=== PATIENT | male | born 1970 | race Caucasian/White ===

== ENCOUNTER 2022-06-18 11:15 | Emergency (ER) | payer OTHER ==
[~2022-06-18] VITALS: Ht 182.8 cm; Wt 97.5 kg
[2022-06-18 11:37] LABS: BASOPHILS % (AUTO) 1 % (0-10); EOSINOPHILS % (AUTO) 1 % (0-10); HEMATOCRIT 44 % (40-54); HEMOGLOBIN 15.3 g/dL (13.3-17.7); LYMPHOCYTES # (AUTO) 0.9 10^3/uL (1.0-4.0); LYMPHOCYTES % (AUTO) 14 % (12-44); MEAN CORPUSCULAR HEMOGLOBIN 29 pg (25-34); MEAN CORPUSCULAR HGB CONC 35 g/dL (32-36); MEAN CORPUSCULAR VOLUME 85 fL (80-99); MEAN PLATELET VOLUME 9.7 fL (9.0-12.2); MONOCYTES # (AUTO) 0.3 10^3/uL (0.0-1.0); MONOCYTES % (AUTO) 5 % (0-12); NEUTROPHILS # (AUTO) 5.3 10^3/uL (1.8-7.8); NEUTROPHILS % (AUTO) 80 % (42-75); PLATELET COUNT 281 10^3/uL (130-400); WHITE BLOOD COUNT 6.7 10^3/uL (4.3-11.0)
[2022-06-18] MEDS ORDERED: LORazepam INJ 2 MG/ML (ATIVAN) VIAL IVP ONE (11:45)
[2022-06-18] MEDS ORDERED: ONDANSETRON 4 MG/2 ML (SDV) Z0FRAN IVP ONE (11:45)
[2022-06-18] MEDS ORDERED: cloNIDine 0.2 MG (CATAPRES) TAB PO ONE (11:45)
[2022-06-18 11:58] LABS: ALKALINE PHOSPHATASE 97 U/L (40-136); BILIRUBIN,TOTAL 0.4 MG/DL (0.1-1.0); BUN/CREATININE RATIO 12; CALCIUM 9.2 MG/DL (8.5-10.1); CARBON DIOXIDE 24 MMOL/L (21-32); CHLORIDE 101 MMOL/L (98-107); CREATININE SERUM 0.89 MG/DL (0.60-1.30); GFR ESTIMATED 102; GLUCOSE 126 MG/DL (70-105); POTASSIUM 4.6 MMOL/L (3.6-5.0); SODIUM 136 MMOL/L (135-145)
[2022-06-18 11:59] LABS: ALANINE AMINOTRANSFERASE 14 U/L (0-55); ALBUMIN 4.7 GM/DL (3.2-4.5); TOTAL PROTEIN 7.4 GM/DL (6.4-8.2)
[2022-06-18] MEDS ORDERED: NS 100 ML (IVPB) BAG IV ONE (12:00)
[2022-06-18] MEDS ORDERED: IOHEXOL 350 MG/ML 100 ML (OMNIPAQUE 350) VIAL IV ONE (12:00)
[2022-06-18] MEDS ORDERED: HOLD METFORMIN - RECEIVED CONTRAST 20 ML VIAL IV SCH (12:00)
[2022-06-18] MEDS ORDERED: CATHETER FLUSH 10 ML SYR IV PRN (12:00)
--- NOTE | 2022-06-18 12:53 | Diagnostic Imaging Report ---
PROCEDURE: CT angiography of the head and CT angiography of the neck with and without contrast. TECHNIQUE: Contiguous noncontrast images were obtained from the skull base through the vertex. After intravenous contrast administration, helical CT angiography of the neck was performed. Source data was reformatted into 3D MIP projections. Delayed post contrast acquisition was also obtained. Auto Exposure Controls were utilized during the CT exam to meet ALARA standards for radiation dose reduction. INDICATION: Dizziness and vertigo. COMPARISON: There is no comparison available. FINDINGS: The noncontrast CT of the head demonstrates no evidence of an acute intracranial abnormality. There are no findings of acute intracranial hemorrhage. There is no mass effect or shift. There is no hydrocephalus. There are no findings of territorial loss of pack-white differentiation or vasogenic edema. The basilar cisterns are patent. The posterior fossa demonstrates no acute process. Mastoids are clear. There is mucosal thickening within the right maxillary sinus. Orbital contents are unremarkable. CTA does not include the origins of the great vessels or the aortic arch. The origins of the vertebral arteries are widely patent. The common carotid arteries demonstrate no significant stenosis. There is mild plaquing at the bifurcations without significant stenosis of the proximal internal carotid arteries by NASCET criteria. Cervical segments of the internal carotid arteries are unremarkable. The vertebral arteries throughout the neck also appear widely patent without caliber change, luminal irregularity or dissection. Intracranially, both the vertebral arteries are patent. There is a patent left posterior inferior cerebellar artery. Right-sided cerebellar supply appears to be secondary to an anterior inferior cerebellar artery/posterior inferior cerebellar artery complex. The basilar is widely patent. Both of the superior cerebral arteries are patent. Both of the posterior cerebral arteries are patent. The anterior intracranial circulation is also intact with normal flow within the internal carotid arteries. There is normal flow within the M1 segment of both the middle cerebral arteries. There are no findings of an M2 branch occlusion. The anterior cerebral arteries are patent. There are no findings of aneurysm. The dural venous sinuses are patent. There is no evidence of abnormal intracranial enhancement. The soft tissues of the neck demonstrate no acute process. The aerodigestive tract is appropriately symmetric. The lung apices are clear. Cervical spinal demonstrates no acute abnormality. IMPRESSION: 1. No CT evidence of an acute intracranial abnormality. 2. CTA demonstrates intact intracranial circulation without findings of large vessel occlusion. 3. No findings of aneurysm. 4. Dural venous sinuses are patent. 5. No pathologic intracranial enhancement. 6. No findings of significant stenosis or dissection within the neck. Dictated by: Dictated on workstation # [id number]
[2022-06-18] MEDS ORDERED: LABETALOL HCL 20 MG/4 ML VIAL IV ONE (13:30)
--- NOTE | 2022-06-18 13:58 | ED Cardiac General ---
History of Present Illness General Chief Complaint: Cardiac/General Problems Stated Complaint: ELEV BP; DIZZINESS; NAUSEA Nursing Triage Note: Patient presents to the ED with c/o dizziness, nausea, and high blood pressure. Reports dizziness started . He was seen at walk-in care this morning and sent to the ED due to elevated blood pressure. Reports that dizziness worsened this morning after sitting up. Source: patient Exam Limitations: no limitations History of Present Illness Date Seen by Provider: Jun 18, 2022 Time Seen by Provider: 11:30 Initial Comments Patient is a 52-year-old male who presents with multiple medical complaints. He reports dizziness nausea and is, vertigo with position change and have movement. Dizziness started 3 days ago and has gradually worsened. He reports that the nausea but without vomiting. He reports headache, ear fullness, congestion. No cough, sore throat, nausea vomiting or sweats. No chest pain or palpitations. Patient has a longstanding history of hypertension and medication noncompliance. He has not seen a primary care physician in over 20 years. His blood pressure at home was in the 190s over 100s. He is unaware of his blood pressure at baseline. Timing/Duration: 1-3 hours Severity: mild Location: other Activities at Onset: other Prior CP/Workup: other Modifying Factors: improves with other NTG SL RESEARCH NURSE PRACTITIONER: No ASA po RESEARCH NURSE PRACTITIONER: No Allergies and Home Medications Allergies Coded Allergies: Penicillins (Verified Allergy, Unknown, 06/18/22) Patient Home Medication List Home Medication List Reviewed: No Review of Systems Review of Systems Constitutional: see HPI EENTM: See HPI Respiratory: See HPI Cardiovascular: See HPI Gastrointestinal: See HPI Genitourinary: See HPI Musculoskeletal: see HPI Skin: see HPI Psychiatric/Neurological: See HPI Endocrine: See HPI Hematologic/Lymphatic: See HPI All Other Systems Reviewed Negative Unless Noted: No Past Hbzhqho-Mkrxhb-Dyqyps Hx Patient Social History Tobacco Use?: No Use of E-Cig and/or Vaping dev: No Substance use?: No Alcohol Use?: Yes Alcohol Frequency: Once in a while Pt feels they are or have been: No Immunizations Up To Date First/Initial COVID19 Vaccinat: Not currently vaccinated Past Medical History Surgery/Hospitalization HX: Skin graft left forearm. Denies relevant medical history. Does no see a primary provider regularly. Physical Exam Vital Signs Vital Signs - First Documented 06/18/22 11:16 Temp 36.7 Pulse 70 Resp 14 B/P (MAP) 197/107 (137) Pulse Ox 98 O2 Delivery Room Air Capillary Refill : Less Than 3 Seconds Height, Weight, BMI Height: '" Weight: lbs. oz. kg; 29.00 BMI Method: General Appearance: No Apparent Distress, WD/WN HEENT: PERRL/EOMI, TMs Normal, Normal ENT Inspection, Pharynx Normal, Other (mild horizontal nystagmus, ) Neck: Normal Inspection, Non Tender Respiratory: Lungs Clear, Normal Breath Sounds Cardiovascular: Regular Rate, Rhythm, No Edema Gastrointestinal: Non Tender, Soft Neurologic/Psychiatric: Alert, Oriented x3, No Motor/Sensory Deficits, mid level business analyst II- XII Norm as Tested Skin: Normal Color Focused Exam Sepsis Stage: Ruled Out Progress/Results/Core Measures Results/Orders Lab Results Laboratory Tests Test 06/18/22 11:29 Range/Units White Blood Count 6.7 4.3-11.0 10^3/uL Red Blood Count 5.24 4.30-5.52 10^6/uL Hemoglobin 15.3 13.3-17.7 g/dL Hematocrit 44 40-54 % Mean Corpuscular Volume 85 80-99 fL Mean Corpuscular Hemoglobin 29 25-34 pg Mean Corpuscular Hemoglobin Concent 35 32-36 g/dL Red Cell Distribution Width 12.6 10.0-14.5 % Platelet Count 281 130-400 10^3/uL Mean Platelet Volume 9.7 9.0-12.2 fL Immature Granulocyte % (Auto) 0 % Neutrophils (%) (Auto) 80 H 42-75 % Lymphocytes (%) (Auto) 14 12-44 % Monocytes (%) (Auto) 5 0-12 % Eosinophils (%) (Auto) 1 0-10 % Basophils (%) (Auto) 1 0-10 % Neutrophils # (Auto) 5.3 1.8-7.8 10^3/uL Lymphocytes # (Auto) 0.9 L 1.0-4.0 10^3/uL Monocytes # (Auto) 0.3 0.0-1.0 10^3/uL Eosinophils # (Auto) 0.0 0.0-0.3 10^3/uL Basophils # (Auto) 0.0 0.0-0.1 10^3/uL Immature Granulocyte # (Auto) 0.0 0.0-0.1 10^3/uL Sodium Level 136 135-145 MMOL/L Potassium Level 4.6 3.6-5.0 MMOL/L Chloride Level 101 98-107 MMOL/L Carbon Dioxide Level 24 21-32 MMOL/L Anion Gap 11 5-14 MMOL/L Blood Urea Nitrogen 11 7-18 MG/DL Creatinine 0.89 0.60-1.30 MG/DL Estimat Glomerular Filtration Rate 102 BUN/Creatinine Ratio 12 Glucose Level 126 H 70-105 MG/DL Calcium Level 9.2 8.5-10.1 MG/DL Corrected Calcium 8.5-10.1 MG/DL Total Bilirubin 0.4 0.1-1.0 MG/DL Aspartate Amino Transf (AST/SGOT) 19 5-34 U/L Alanine Aminotransferase (ALT/SGPT) 14 0-55 U/L Alkaline Phosphatase 97 40-136 U/L Troponin I < 0.30 <0.30 NG/ML Total Protein 7.4 6.4-8.2 GM/DL Albumin 4.7 H 3.2-4.5 GM/DL My Orders Orders - KEIRA MCMULLEN DO Cbc With Automated Diff (06/18/22 11:28) Comprehensive Metabolic Panel (06/18/22 11:28) Ct Angio Head/Neck (06/18/22 11:28) Ekg Tracing (06/18/22 11:28) Troponin I Fs (06/18/22 11:28) Lorazepam Injection (Ativan Injection) (06/18/22 11:45) Ondansetron Injection (Zofran Injectio (06/18/22 11:45) Clonidine Tablet (Catapres Tablet) (06/18/22 11:45) Labetalol Injection (Normodyne Injection (06/18/22 13:30) Medications Given in ED Current Medications Medications Dose Ordered Sig/Drake Route Start Time Stop Time Status Last Admin Dose Admin Clonidine HCl 0.2 mg ONCE ONCE PO 06/18/22 11:45 06/18/22 11:46 DC 06/18/22 12:10 0.2 MG Iohexol 75 ml ONCE ONCE IV 06/18/22 12:00 06/18/22 12:04 DC 06/18/22 12:26 75 ML Labetalol HCl 20 mg ONCE ONCE IV 06/18/22 13:30 06/18/22 13:31 DC 06/18/22 13:28 20 MG Lorazepam 1 mg ONCE ONCE IVP 06/18/22 11:45 06/18/22 11:46 DC 06/18/22 12:19 1 MG Ondansetron HCl 4 mg ONCE ONCE IVP 06/18/22 11:45 06/18/22 11:46 DC 06/18/22 12:10 4 MG Sodium Chloride 10 ml NEEDED PRN IV 06/18/22 12:00 06/18/22 12:26 10 ML Sodium Chloride 100 ml ONCE ONCE IV 06/18/22 12:00 06/18/22 12:04 DC 06/18/22 12:26 86 ML Vital Signs/I&O 06/18/22 11:16 Temp 36.7 Pulse 70 Resp 14 B/P (MAP) 197/107 (137) Pulse Ox 98 O2 Delivery Room Air Blood Pressure Mean: 137 Departure Communication (Admissions) EKG: normal sinus rhythm. CTA head neck: No hemorrhage, no large vessel occlusion per radiology reports. Patient with positional components of vertigo. Symptoms resolved with Ativan and Zofran. Blood pressure improved with clonidine and labetalol. Will treat supportively and start patient on blood pressure medications with instructions to follow-up with local PCP this week. Return precautions reviewed. Patient verbalizes understanding and agreement discharge instructions prior to departure. Impression Primary Impression: Positional vertigo Additional Impression: Accelerated hypertension Disposition: 01 HOME, SELF-CARE Condition: Stable Departure-Patient Inst. Decision time for Depature: 14:00 Patient Instructions: Vertigo (a Type of Dizziness) (DC), High Blood Pressure ED Add. Discharge Instructions: You were evaluated in the ED for dizziness, and hypertension. An EKG lab and imaging studies were performed. The exact cause of your symptoms has not been determined. Please take Zofran and Meclizine OTC for dizziness and take newly prescribed blood pressure as directed. Establish with a local primary care doctor today for further management. Return to the ED if new or worsening symptoms. All discharge instructions reviewed with patient and/or family. Voiced understanding. Scripts Meclizine HCl (Meclizine HCl) 25 Mg Tablet 50 MG PO Q6H PRN for VERTIGO, #30 TAB Prov: KEIRA MCMULLEN DO 06/18/22 Ondansetron (Ondansetron Odt) 4 Mg Tab.rapdis 4 MG SL Q4H PRN for NAUSEA/VOMITING, #14 TAB Prov: KEIRA MCMULLEN DO 06/18/22 Amlodipine Besylate (Norvasc) 10 Mg Tablet 10 MG PO DAILY, #30 TAB Prov: KEIRA MCMULLEN DO 06/18/22 Work/School Note: Work Release Form Date Seen in the Emergency Department: Jun 18, 2022 Return to Work: Jun 20, 2022 Restrictions: No Restrictions KEIRA MCMULLEN DO Jun 18, 2022 13:58
[2022-06-18] MEDS ORDERED: MECL-149 PO (14:04)
[2022-06-18] MEDS ORDERED: AMLO10TA4 PO (14:04)
[2022-06-18] MEDS ORDERED: ONDA4TAB11 SL (14:04)
[2022-06-18 14:08] VITALS: BP 151/91
== END 2022-06-18 14:08 | disposition home or self-care (01) ==
LOC: ER FS 11:17
DX: I10 Essential (primary) hypertension (principal); Z28.310 Unvaccinated for COVID-19
CPT/HCPCS: 36415; 70496; 70498; 80053; 84484; 85025; 93005; Q9967

== ENCOUNTER 2022-08-18 10:50 | Emergency (ER) | payer OTHER ==
[~2022-08-18] VITALS: Ht 182.9 cm; Wt 94.2 kg
[~2022-08-18 10:50] MED LIST: AMLO10TA4 PO; MECL-149 PO; ONDA4TAB11 SL
--- NOTE | 2022-08-18 11:03 | ED GI ---
General Chief Complaint: Abdominal/GI Problems Stated Complaint: LLQ PAIN History of Present Illness Date Seen by Provider: Aug 18, 2022 Time Seen by Provider: 11:01 Initial Comments 52-year-old male with PMH of HTN/active smoker, is here with complaints of left lower quadrant pain which began 2 days ago and has been intermittent and colicky in nature, and progressively worsening. When the pain occurs it is associated with nausea. In the ER patient has not had any pain or nausea or vomiting. Patient states that he has not been drinking much water lately. Denies fever, dysuria, diarrhea, constipation, chest pain, palpitations. Allergies and Home Medications Allergies Coded Allergies: Penicillins (Verified Allergy, Unknown, 06/18/22) Patient Home Medication List Home Medication List Reviewed: Yes Amlodipine Besylate (Norvasc) 10 Mg Tablet, 10 MG PO DAILY Prescribed by: KEIRA MCMULLEN on 06/18/22 1404 Meclizine HCl (Meclizine HCl) 25 Mg Tablet, 50 MG PO Q6H PRN for VERTIGO Prescribed by: KEIRA MCMULLEN on 06/18/22 1404 Ondansetron (Ondansetron Odt) 4 Mg Tab.rapdis, 4 MG SL Q4H PRN for NAUSEA/VO MITING Prescribed by: KEIRA MCMULLEN on 06/18/22 1404 Review of Systems Review of Systems Constitutional: no symptoms reported EENTM: No Symptoms Reported Respiratory: No Symptoms Reported Cardiovascular: No Symptoms Reported Gastrointestinal: Abdominal Pain Past Krbdarx-Bjcvzd-Rpeklk Hx Immunizations Up To Date First/Initial COVID19 Vaccinat: Not currently vaccinated Past Medical History Surgery/Hospitalization HX: Skin graft left forearm. Denies relevant medical history. Does no see a primary provider regularly. Physical Exam Vital Signs Vital Signs - First Documented 08/18/22 11:02 Temp 35.6 Pulse 87 Resp 20 B/P (MAP) 138/109 (119) Pulse Ox 98 O2 Delivery Room Air Capillary Refill : Height/Weight/BMI Height: '" Weight: lbs. oz. kg; 29.00 BMI Method: General Appearance: WD/WN, no apparent distress HEENT: PERRL/EOMI Neck: full range of motion, normal inspection Respiratory: chest non-tender, lungs clear, normal breath sounds Cardiovascular: regular rate, rhythm Gastrointestinal: normal bowel sounds, soft, no organomegaly, tenderness (LLQ tenderness) Back: CVA tenderness (L) Neurologic/Psychiatric: alert, normal mood/affect, oriented x 3 Skin: normal color Lymphatic: no adenopathy Progress/Results/Core Measures Results/Orders Lab Results Laboratory Tests Test 08/18/22 11:45 Range/Units White Blood Count 8.8 4.3-11.0 10^3/uL Red Blood Count 5.05 4.30-5.52 10^6/uL Hemoglobin 14.9 13.3-17.7 g/dL Hematocrit 43 40-54 % Mean Corpuscular Volume 86 80-99 fL Mean Corpuscular Hemoglobin 30 25-34 pg Mean Corpuscular Hemoglobin Concent 34 32-36 g/dL Red Cell Distribution Width 12.9 10.0-14.5 % Platelet Count 305 130-400 10^3/uL Mean Platelet Volume 9.5 9.0-12.2 fL Immature Granulocyte % (Auto) 1 % Neutrophils (%) (Auto) 77 H 42-75 % Lymphocytes (%) (Auto) 13 12-44 % Monocytes (%) (Auto) 8 0-12 % Eosinophils (%) (Auto) 1 0-10 % Basophils (%) (Auto) 1 0-10 % Neutrophils # (Auto) 6.8 1.8-7.8 10^3/uL Lymphocytes # (Auto) 1.2 1.0-4.0 10^3/uL Monocytes # (Auto) 0.7 0.0-1.0 10^3/uL Eosinophils # (Auto) 0.1 0.0-0.3 10^3/uL Basophils # (Auto) 0.0 0.0-0.1 10^3/uL Immature Granulocyte # (Auto) 0.0 0.0-0.1 10^3/uL Urine Color YELLOW Urine Clarity SL CLOUDY Urine pH 5.5 5-9 Urine Specific [place] >=1.030 1.016-1.022 Urine Protein NEGATIVE NEGATIVE Urine Glucose (UA) NEGATIVE NEGATIVE Urine Ketones NEGATIVE NEGATIVE Urine Nitrite NEGATIVE NEGATIVE Urine Bilirubin NEGATIVE NEGATIVE Urine Urobilinogen 0.2 < = 1.0 MG/DL Urine Leukocyte Esterase NEGATIVE NEGATIVE Urine RBC (Auto) 3+ H NEGATIVE Urine RBC 10-25 H /HPF Urine WBC 2-5 /HPF Urine Squamous Epithelial Cells NONE /HPF Urine Crystals NONE /LPF Urine Bacteria NEGATIVE /HPF Urine Casts NONE /LPF Urine Mucus SMALL H /LPF Urine Culture Indicated NO Sodium Level 139 135-145 MMOL/L Potassium Level 4.2 3.6-5.0 MMOL/L Chloride Level 100 98-107 MMOL/L Carbon Dioxide Level 27 21-32 MMOL/L Anion Gap 12 5-14 MMOL/L Blood Urea Nitrogen 18 7-18 MG/DL Creatinine 1.37 H 0.60-1.30 MG/DL Estimat Glomerular Filtration Rate 62 BUN/Creatinine Ratio 13 Glucose Level 116 H 70-105 MG/DL Calcium Level 9.4 8.5-10.1 MG/DL Corrected Calcium 8.5-10.1 MG/DL Total Bilirubin 0.4 0.1-1.0 MG/DL Aspartate Amino Transf (AST/SGOT) 25 5-34 U/L Alanine Aminotransferase (ALT/SGPT) 16 0-55 U/L Alkaline Phosphatase 98 40-136 U/L Total Protein 7.9 6.4-8.2 GM/DL Albumin 4.8 H 3.2-4.5 GM/DL Lipase 25 8-78 U/L Urine Opiates Screen NEGATIVE NEGATIVE Urine Oxycodone Screen NEGATIVE NEGATIVE Urine Methadone Screen NEGATIVE NEGATIVE Urine Propoxyphene Screen NEGATIVE NEGATIVE Urine Barbiturates Screen NEGATIVE NEGATIVE Ur Tricyclic Antidepressants Screen NEGATIVE NEGATIVE Urine Phencyclidine Screen NEGATIVE NEGATIVE Urine Amphetamines Screen NEGATIVE NEGATIVE Urine Methamphetamines Screen NEGATIVE NEGATIVE Urine Benzodiazepines Screen NEGATIVE NEGATIVE Urine Cocaine Screen NEGATIVE NEGATIVE Urine Cannabinoids Screen NEGATIVE NEGATIVE My Orders Orders - SWETHA IVY MD Cbc With Automated Diff (08/18/22 11:07) Comprehensive Metabolic Panel (08/18/22 11:07) Drug Screen Stat (Urine) (08/18/22 11:07) Lipase (08/18/22 11:07) Ua Culture If Indicated (08/18/22 11:07) Ct Abdomen/Pelvis Wo (08/18/22 ) Vital Signs/I&O 08/18/22 11:02 Temp 35.6 Pulse 87 Resp 20 B/P (MAP) 138/109 (119) Pulse Ox 98 O2 Delivery Room Air Progress Progress Note : Progress Note 1. LEFT SIDE NEPHROLITHIASIS: - CT ABD : 4.5 mm kidney stone and diverticulitis - UA is positive for RBC - Other labs unremarkable - No pain in ER - Follow up with Urology and PCP - NSAID as needed -The patient was seen in the ED, and treated appropriately to presentation at a specific point in time. Patient is informed that there is a possibility that disease and illness can evolve and change in acuity rapidly or slowly after patient is discharged from the ER. Precautionary advice given to the patient for immediate return to ER if symptoms worsen or do not resolve, and to seek emergency care sooner rather than later. Pt also advised on the importance of PCP follow up and compliance with management and follow up plan with PCP and/or specialist, as this is part of the management plan. Pt verbally expressed understanding. 2. ACUTE UNCOMPLICATED DIVERTICULITIS - CT scan -As per ACP new revised Guidelines, uncomplicated left sided diverticulitis does not need antibiotic treatment. - Advised pt to follow up with Surgery clinic in 3 to 7 days - Appropriate diet advised - Return to ER if fever or increasing pain develops. Diagnostic Imaging Diagonstic Imaging: CT Plain Films/CT/US/NM/MRI: abdomen Comments [facility] [place], [place] NAME: JUNE GARCIA [facility] REC#: [id number] PT STATUS: REG ER : 1970 PHYSICIAN: SWETHA IVY MD ADMIT DATE: 08/18/22/ER FS Draft Date of Exam:08/18/22 CT ABDOMEN/PELVIS WO PROCEDURE: CT abdomen and pelvis without contrast. TECHNIQUE: Multiple contiguous axial images were obtained through the abdomen and pelvis without the use of intravenous contrast. Auto Exposure Controls were utilized during the CT exam to meet ALARA standards for radiation dose reduction. INDICATION: Left lower quadrant pain. COMPARISON: I have no previous for comparison. FINDINGS: There is a 4.5 mm diameter stone in the proximal left ureter found at the L3-L4 disc space level resulting in jnoe-er-vgqbvgkc upstream left-sided hydroureteronephrosis with perinephric and periureteric edema and stranding. There are additional intrarenal nonobstructing stones; two more on the left and one on the right are present. No other level of obstruction. There is a small amount of pelvic free fluid, but no loculated collection. The appendix is unremarkable. There are fairly substantial changes of sigmoid diverticulosis. There is some left flank perisigmoidal stranding and edema. While there is a proximal left ureteral obstruction and left hydroureteronephrosis, I believe there is likely a component of mild active acute sigmoid diverticulitis present as well. No loculated collection, abscess, bowel obstruction, or free air. The appendix is normal. There is a low-density nodule in the left hepatic lobe, believed cystic. The gallbladder and bile ducts are negative. The adrenals, spleen, and pancreas are unremarkable. IMPRESSION: 1. Bilateral nephrolithiasis. Zxyy-ld-xlawaewo left hydroureteronephrosis owing to a 4.5 mm stone in the proximal left ureter. 2. In addition, there is some inflammatory stranding of the fat adjacent to the diverticulated sigmoid colon and distal descending colon, believed to reflect mild changes of sigmoid diverticulitis without abscess, its obstruction, nor perforation. 3. Small-volume pelvic free fluid with no loculated collection. 4. Additional nonobstructing bilateral intrarenal calculi are noted. Dictated on workstation # [id number] Dict: 08/18/22 1214 Trans: 08/18/22 1227 [id number] Interpreted by: ELFEGO CEDILLO Electronically signed by: Departure Impression Primary Impression: Left nephrolithiasis Additional Impression: Acute diverticulitis Disposition: 01 HOME, SELF-CARE Condition: Stable Departure-Patient Inst. Referrals: KAYLI SAUNDERS APRN (PCP) Primary Care Physician [facility] [place] [facility] [place] Primary Care Physician PARIS BLACKWELL ELIAS A MD Patient Instructions: Diverticulitis, How to Strain Your Urine, Kidney Stones (DC), Kidney Stone Diet, Diverticulitis (DC) Add. Discharge Instructions: - Follow up with Urology, Dr Bragg and PCP, within 7 days. Call for appointment - NSAID as needed - Advised pt to follow up with Surgery clinic in 3 to 7 days, Dr Blackwell's office - Appropriate diet advised - Return to ER if fever or increasing pain develops. SWETHA IVY MD Aug 18, 2022 11:03
[2022-08-18 11:49] LABS: BASOPHILS % (AUTO) 1 % (0-10); EOSINOPHILS # (AUTO) 0.1 10^3/uL (0.0-0.3); EOSINOPHILS % (AUTO) 1 % (0-10); HEMATOCRIT 43 % (40-54); HEMOGLOBIN 14.9 g/dL (13.3-17.7); LYMPHOCYTES # (AUTO) 1.2 10^3/uL (1.0-4.0); LYMPHOCYTES % (AUTO) 13 % (12-44); MEAN CORPUSCULAR HEMOGLOBIN 30 pg (25-34); MEAN CORPUSCULAR HGB CONC 34 g/dL (32-36); MEAN CORPUSCULAR VOLUME 86 fL (80-99); MEAN PLATELET VOLUME 9.5 fL (9.0-12.2); MONOCYTES # (AUTO) 0.7 10^3/uL (0.0-1.0); MONOCYTES % (AUTO) 8 % (0-12); NEUTROPHILS # (AUTO) 6.8 10^3/uL (1.8-7.8); NEUTROPHILS % (AUTO) 77 % (42-75); PLATELET COUNT 305 10^3/uL (130-400); WHITE BLOOD COUNT 8.8 10^3/uL (4.3-11.0)
[2022-08-18 11:50] LABS: BILIRUBIN,URINE NEGATIVE (NEGATIVE); CLARITY,URINE SL CLOUDY; COLOR,URINE YELLOW; GLUCOSE, URINE (UA) NEGATIVE (NEGATIVE); KETONES,URINE NEGATIVE (NEGATIVE); LEUKOCYTE ESTERASE ,URINE NEGATIVE (NEGATIVE); NITRITE,URINE NEGATIVE (NEGATIVE); PH,URINE 5.5 (5-9); PROTEIN,URINE NEGATIVE (NEGATIVE)
[2022-08-18 12:08] LABS: BACTERIA,URINE NEGATIVE /HPF
[2022-08-18 12:09] LABS: AMPHETAMINE SCREEN, URINE NEGATIVE (NEGATIVE); BARBITURATE SCREEN URINE NEGATIVE (NEGATIVE); BENZODIAZEPINES SCREEN URINE NEGATIVE (NEGATIVE); CANNABINOID SCREEN, URINE NEGATIVE (NEGATIVE); COCAINE SCREEN URINE NEGATIVE (NEGATIVE); METHADONE STAT NEGATIVE (NEGATIVE); OPIATE SCREEN URINE NEGATIVE (NEGATIVE); OXYCODONE STAT NEGATIVE (NEGATIVE); PROPOXYPHENE STAT NEGATIVE (NEGATIVE); TRICYCLIC ANTIDEPRESSANTS SCRE NEGATIVE (NEGATIVE)
[2022-08-18 12:18] LABS: CHLORIDE 100 MMOL/L (98-107); POTASSIUM 4.2 MMOL/L (3.6-5.0); SODIUM 139 MMOL/L (135-145)
[2022-08-18 12:19] LABS: ALKALINE PHOSPHATASE 98 U/L (40-136); BILIRUBIN,TOTAL 0.4 MG/DL (0.1-1.0); BUN/CREATININE RATIO 13; CALCIUM 9.4 MG/DL (8.5-10.1); CARBON DIOXIDE 27 MMOL/L (21-32); CREATININE SERUM 1.37 MG/DL (0.60-1.30); GFR ESTIMATED 62; GLUCOSE 116 MG/DL (70-105)
[2022-08-18 12:20] LABS: ALANINE AMINOTRANSFERASE 16 U/L (0-55); ALBUMIN 4.8 GM/DL (3.2-4.5); LIPASE 25 U/L (8-78); TOTAL PROTEIN 7.9 GM/DL (6.4-8.2)
--- NOTE | 2022-08-18 12:28 | Diagnostic Imaging Report ---
PROCEDURE: CT abdomen and pelvis without contrast. TECHNIQUE: Multiple contiguous axial images were obtained through the abdomen and pelvis without the use of intravenous contrast. Auto Exposure Controls were utilized during the CT exam to meet ALARA standards for radiation dose reduction. INDICATION: Left lower quadrant pain. COMPARISON: I have no previous for comparison. FINDINGS: There is a 4.5 mm diameter stone in the proximal left ureter found at the L3-L4 disc space level resulting in mhrc-ls-ionoyrte upstream left-sided hydroureteronephrosis with perinephric and periureteric edema and stranding. There are additional intrarenal nonobstructing stones; two more on the left and one on the right are present. No other level of obstruction. There is a small amount of pelvic free fluid, but no loculated collection. The appendix is unremarkable. There are fairly substantial changes of sigmoid diverticulosis. There is some left flank perisigmoidal stranding and edema. While there is a proximal left ureteral obstruction and left hydroureteronephrosis, I believe there is likely a component of mild active acute sigmoid diverticulitis present as well. No loculated collection, abscess, bowel obstruction, or free air. The appendix is normal. There is a low-density nodule in the left hepatic lobe, believed cystic. The gallbladder and bile ducts are negative. The adrenals, spleen, and pancreas are unremarkable. IMPRESSION: 1. Bilateral nephrolithiasis. Urjj-wx-mqplgklh left hydroureteronephrosis owing to a 4.5 mm stone in the proximal left ureter. 2. In addition, there is some inflammatory stranding of the fat adjacent to the diverticulated sigmoid colon and distal descending colon, believed to reflect mild changes of sigmoid diverticulitis without abscess, its obstruction, nor perforation. 3. Small-volume pelvic free fluid with no loculated collection. 4. Additional nonobstructing bilateral intrarenal calculi are noted. Dictated by: Dictated on workstation # [id number]
[2022-08-18 14:07] VITALS: BP 135/88
== END 2022-08-18 14:08 | disposition home or self-care (01) ==
LOC: EDUNIT# 10:50 → ER FS 10:53
DX: N13.2 Hydronephrosis with renal and ureteral calculous obstruction (principal); K57.32 Diverticulitis of large intestine without perforation or abscess without bleeding; Z28.310 Unvaccinated for COVID-19
CPT/HCPCS: 36415; 74176; 80053; 80306; 81000; 83690; 85025